=== PATIENT | male | born 1975 | race Two or more races ===

== ENCOUNTER 2022-05-22 19:41 | Emergency (ER) | payer SELFPAY ==
[~2022-05-22] VITALS: Ht 180.3 cm; Wt 86.2 kg
[2022-05-22 20:22] LABS: HEMATOCRIT 43.4 % (36.7-47.1); MEAN CORPUSCULAR HEMOGLOBIN 29.7 uug (23.8-33.4); MEAN CORPUSCULAR VOLUME 86.4 fL (73.0-96.2); PLATELET COUNT (AUTO) 298 K/uL (152-348)
[2022-05-22 20:34] LABS: CREATININE 0.8 mg/dL (0.6-1.3); POTASSIUM 3.9 mmol/L (3.5-5.1)
[2022-05-22 20:40] LABS: BILIRUBIN,DIRECT 0.1 mg/dL (0.0-0.2); BILIRUBIN,TOTAL 0.2 mg/dL (0.2-1.0); TOTAL PROTEIN, SERUM 7.4 g/dL (6.4-8.2)
[2022-05-22] MEDS ORDERED: HYDR-3980 PO (21:05)
[2022-05-22] MEDS ORDERED: AMOX-430 PO (21:05)
[2022-05-22] MEDS ORDERED: METR500T PO (21:05)
[2022-05-22] MEDS ORDERED: CIPR500T5 PO (21:14)
== END 2022-05-22 21:17 | disposition home or self-care (01) ==
LOC: ER 19:41
DX: K57.32 Diverticulitis of large intestine without perforation or abscess without bleeding (principal); R03.0 Elevated blood-pressure reading, without diagnosis of hypertension
CPT/HCPCS: 36415; 85025; A4663